=== PATIENT | female | born 1985 | race Caucasian/White ===

== ENCOUNTER 2017-04-07 13:24 | Emergency (ER) | payer SELFPAY | END 2017-04-07 14:09 | disposition home or self-care (01) | LOC: NAV ERS 13:24 | DX: K52.9 Noninfective gastroenteritis and colitis, unspecified (principal); F32.9 Major depressive disorder, single episode, unspecified; F17.210 Nicotine dependence, cigarettes, uncomplicated | CPT/HCPCS: 99283 ==

== ENCOUNTER 2018-04-07 10:38 | Emergency (ER) | payer OTHER, SELFPAY | END 2018-04-07 11:18 | disposition home or self-care (01) | LOC: NAV ERS 10:38 | DX: S33.5XXA Sprain of ligaments of lumbar spine, initial encounter (principal); S70.01XA Contusion of right hip, initial encounter; G47.00 Insomnia, unspecified; J44.9 Chronic obstructive pulmonary disease, unspecified; G89.29 Other chronic pain; F32.9 Major depressive disorder, single episode, unspecified; F17.210 Nicotine dependence, cigarettes, uncomplicated; W01.0XXA Fall on same level from slipping, tripping and stumbling without subsequent striking against object, initial encounter | CPT/HCPCS: 99283 ==

== ENCOUNTER 2018-05-30 07:07 | Emergency (ER) | payer OTHER | END 2018-05-30 07:50 | LOC: NAV ERS 07:07 | DX: S05.92XA Unspecified injury of left eye and orbit, initial encounter (principal); J44.9 Chronic obstructive pulmonary disease, unspecified; F32.9 Major depressive disorder, single episode, unspecified; F17.210 Nicotine dependence, cigarettes, uncomplicated; Y04.2XXA Assault by strike against or bumped into by another person, initial encounter | CPT/HCPCS: 99283 ==

== ENCOUNTER 2018-08-31 08:08 | Emergency (ER) | payer OTHER, SELFPAY ==
[2018-08-31] MEDS ORDERED: Ketorolac Tromethamine 60 MG/2 ML VIAL ONE (08:24)
[2018-08-31] MEDS ORDERED: HYDROcodone/Acetaminophen 5/325 mg Tablet ONE (08:24)
--- NOTE | 2018-08-31 09:46 | RAD ---
RIGHT FOOT 3 VIEWS: HISTORY: Pain. Wound. COMPARISON: None. FINDINGS: There are 2 screws to the 5th metatarsal diaphysis. Likely an old injury. Lisfranc interval is main tained. There is a fracture of the calcaneus extending through the dorsal aspect of the calcaneal body. No f racture lines extending through the posterior tuberosity. IMPRESSION: Fracture of the calcaneus which appears to extend into the calcaneal cuboid joint and exits dorsally along the dorsal cortex just posterior to the posterior subtalar joint without extension into the pos terior tuberosity. CT may be helpful. POS: [facility]
--- NOTE | 2018-08-31 10:31 | CT ---
CT LUMBAR SPINE: HISTORY: A 33-year-old female who jumped off a barn, with back pain. TECHNIQUE: Axial images are obtained with coronal and sagittal reconstructions. FINDINGS: There is motion artifact at the T12 level. There is also motion artifact at the S1-S2 levels. Corre lation with plain film radiographs or repeat CT of the lower thoracic and upper sacral region may be of use. The lumbar spine demonstrates no evidence of significant height loss. The vertebral bodies and posterior elements are in normal alignment. IMPRESSION: No definite evidence of lumbar spine pathology. The lower thoracic and upper sacral region cannot be adequately evaluated due to motion artifact. There is partial lumbarization of the S1 vertebral bod y. POS: [facility]
--- NOTE | 2018-08-31 10:51 | CT ---
LEFT LOWER EXTREMITY CT SCAN WITHOUT IV CONTRAST: HISTORY: Follow up calcaneal fracture. FINDINGS: There is a comminuted calcaneal fracture with some flattening of the Bohler angle. There are vertica lly and oblique oriented tears through the mid body of the calcaneus, with some medial and lateral di splacement of approximately 0.5 cm medially and laterally. There is a linear, nondisplaced fracture, which extends into the anterior process, as well as a subcortical fracture extending laterally, cesar cent to the angle of Gissane, and entering the sinus tarsi. There is also a nondisplaced fracture in volving the sustentaculum talus and extending into the medial and anterior subtalar joint. The visua lized flexor, extensor, and peroneus tendons appear intact. There is certainly some fat stranding ar ound the peroneus longus and brevis common extensor tendon, at the level of the peroneal tubercle and just caudal to this level. This lateral portion of the calcaneal fracture extends to very near the calcaneofibular ligament insertion. IMPRESSION: Comminuted calcaneal fracture, as above, with some flattening of the Bohler angles, with fractures ex tending into the sinus tarsi and anterior talar process. POS: [facility]
== END 2018-08-31 11:59 | disposition home or self-care (01) ==
LOC: NAV ERS 08:08
DX: S92.025A Nondisplaced fracture of anterior process of left calcaneus, initial encounter for closed fracture (principal); S92.192A Other fracture of left talus, initial encounter for closed fracture; S39.012A Strain of muscle, fascia and tendon of lower back, initial encounter; J44.9 Chronic obstructive pulmonary disease, unspecified; F17.210 Nicotine dependence, cigarettes, uncomplicated; W17.89XA Other fall from one level to another, initial encounter
CPT/HCPCS: 29515; 72131; 96372; J1885; J2270